=== PATIENT | female | born 1970 | race Caucasian/White ===

== ENCOUNTER 2021-12-07 06:28 | Day surgery (SDC) | payer BC ==
[~2021-12-07] VITALS: Ht 165.1 cm; Wt 62.2 kg
[~2021-12-07 06:28] MED LIST: MULTI VITAMIN1 EACH PO
--- NOTE | 2021-12-07 08:10 | NUR ---
12/07/21 0810 Sheets,Zenia 0805 PT ARRIVED TO PACU ON RA AND VSS. PT WAKES EASILY AND DENIES NAUSEA AND PAIN. PT ENCOURAGED TO PAS GAS.
--- NOTE | 2021-12-07 08:31 | NUR ---
PT ALERT, ORIENTED AND HERE FOR HER FIRST SCOPE. PT ANXIOUS-ANESTHESIA AND GOING UNDER SEEMS TO BE AN ISSUE. 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 GAVE ENCOURAGEMENT AND BLESSING WILL FOLLOW NEEDED
--- NOTE | 2021-12-07 09:33 | OR ---
[facility] [address] [place], [place] [address] Signed DATE OF OPERATION: 12/07/2021 SURGEON: aMgy Mahoney MD PREOPERATIVE DIAGNOSIS: Maternal aunt with colon cancer in her 60s. POSTOPERATIVE DIAGNOSES: 1. Long redundant tortuous colon. 2. 4 mm polyp at 22 cm. 3. 3 mm polyp at 5 cm. 4. Minimal to moderate external hemorrhoids. 5. Possible single diverticulum distal right colon. PROCEDURE: Colonoscopy with hot biopsy. ESTIMATED BLOOD LOSS: None. INDICATIONS: Bhavani is a 51-year-old female, asked to see me for her initial colonoscopy. She has no lower GI complaints. Her maternal aunt developed colon cancer in her 60s. Bhavani also spoke of her systemic lupus with a low white blood cell count. However, she takes no medication for her lupus. She follows along with Dr. Chang. She said it has been stable. In the office, I had given her a pamphlet on colonoscopy. She understands the nature of that test. There is risk including, but not limited to gas bloating, crampy abdominal pain, bleeding, perforation requiring surgery, and missed diagnosis. She also understands the need for IV conscious sedation. She had expressed understanding and wished to proceed. PROCEDURE NOTE: Bhavani was taken into our endoscopy suite and placed in the left lateral decubitus position. She was given a total of 175 mcg of fentanyl and 8 mg of Versed to cover the case. Even then, she was awake and talking to us much of the procedure. She was moaning during much of the procedure. Towards the end, she finally relaxed just enough for a very short time that we were able to finally get the camera through her long redundant colon and into the cecum itself. Fortunately, she is young with an excellent bowel prep. In the future, she clearly needs monitored anesthesia care of propofol for her comfort and safety actually. A digital rectal exam had been done and she does have Electronically Signed By: MAGY MAHONEY MD 12/07/21 0933 PATIENT NAME: BHAVANI FUENTES OPERATIVE REPORT DATE OF : 68 REPORT #: [id number] PHYSICIAN: MAGY MAHONEY MD PCP: MICHAEL STEEN PA-C REPORT IS CONFIDENTIAL AND NOT TO BE RELEASED WITHOUT AUTHORIZATION [facility] [address] [place], [place] [address] Signed moderate external hemorrhoids. Good sphincter tone. No masses. The adult colonoscope had been introduced and advanced under direct visualization of the camera. Again, she has a very long redundant colon and quite tortuous all the way through the left colon and her transverse colon. We finally made it into the right colon and down to the cecum itself. We could easily see the appendiceal orifice and the ileocecal valve. We had to use abdominal compression and additional doses of the Versed and fentanyl. Once again, she was awaken, watching and talking to us much of the procedure. The scope was then slowly withdrawn. We thought she has just a single diverticulum in the distal right colon. It is relatively small in size. In the very distal sigmoid colon, we removed the polyp with a hot biopsy forceps. She had a very tiny polyp at 5 cm in the rectum, removed with hot biopsy forceps. Upon retroflexion of the scope, we saw no additional pathology noted above the anal canal. After this, the gas was suctioned out and the colonoscope removed. Overall, Bhavani tolerated the procedure. RECOMMENDATIONS: I will see Bhavani back in my office in 7 to 14 days to review her results. In the future, she clearly needs monitored anesthesia care with propofol as described above. Magy Mahoney MD ALB/MODL /[id number] cc: MD Dr. Michael Titus Copies: MAGY MAHONEY MD ~ Electronically Signed By: MAGY MAHONEY MD 12/07/21 0933 PATIENT NAME: BHAVANI FUENTES OPERATIVE REPORT DATE OF : 68 REPORT #: [id number] PHYSICIAN: MAGY MAHONEY MD PCP: MICHAEL STEEN PA-C REPORT IS CONFIDENTIAL AND NOT TO BE RELEASED WITHOUT AUTHORIZATION
--- NOTE | 2021-12-08 12:16 | PATH ---
[facility] [address] [place], [place] [address] Signed SPECIMEN(S): A COLON POLYP AT 5 CM SPECIMEN(S): B COLON POLYP AT 22 CM SPECIMEN SOURCE: A. COLON POLYP AT 5 CM B. COLON POLYP AT 22 CM CLINICAL HISTORY: Colonoscopy. Family history of colon CA. Postop: Polyps, diverticula, external hemorrhoids. FINAL PATHOLOGIC DIAGNOSIS: A. Colon, polyp at 5 cm, polypectomy: - Hyperplastic polyp. - Negative for dysplasia or carcinoma. B. Colon, polyp at 22 cm, polypectomy: - Hyperplastic polyp. - Negative for dysplasia or carcinoma. NAL:cml:C2NR MICROSCOPIC EXAMINATION: Histologic sections of all submitted blocks are examined by light microscopy. These findings, together with the gross examination, support the pathologic diagnosis. GROSS DESCRIPTION: Two specimens are received in two containers, labeled "DB,." A. The specimen, labeled "DB, colon polyp at 5 cm," is received in formalin and consists of one hensley soft tissue fragment that measures 0.1 cm in greatest dimension. The specimen is entirely submitted in cassette (A1). B. The specimen, labeled "DB, colon polyp at 22 cm," is received in formalin and consists of one hensley soft tissue fragment that measures 0.2 cm in greatest dimension. The specimen is entirely submitted in cassette (B1). JS (under the direct supervision of a pathologist) The Gross Description was prepared using a voice recognition system. The report was reviewed for accuracy; however, sound-alike word errors, addition and/or deletions may occur. If there is any question about this report, please contact Client Services. PATIENT NAME: ROJAS FUENTES PATHOLOGY DATE OF : 68 REPORT #: [id number] PHYSICIAN: YORDY CASTAÑEDA PCP: MICHAEL STEEN PA-C REPORT IS CONFIDENTIAL AND NOT TO BE RELEASED WITHOUT AUTHORIZATION [facility] [address] [place] [address] Signed PERFORMING LABORATORY: The technical component was performed [place] [place] [address] (Tuyere Fitter: Ana Maria Marcial MD; CLIA# [id number]). Professional interpretation was performed by [employer], [address] [address] (CLIA# [id number]). Diagnostician: Yamel Peres MD Pathologist Electronically Signed 12/08/2021 Copies: ~ PATIENT NAME: ROJAS FUENTES PATHOLOGY DATE OF : 68 REPORT #: [id number] PHYSICIAN: YORDY CASTAÑEDA PCP: MICHAEL STEEN PA-C REPORT IS CONFIDENTIAL AND NOT TO BE RELEASED WITHOUT AUTHORIZATION
== END 2021-12-07 08:36 | disposition home or self-care (01) ==
LOC: OPS 06:28 → DS 06:28 → OPS 08:15
PROVIDERS: ATTEND Colon & Rectal Surgery
PROC: 0DBN8ZZ Excision of Sigmoid Colon, Via Natural or Artificial Opening Endoscopic (ICD-10-PCS; principal; 2021-12-07 06:45)
DX: Z12.11 Encounter for screening for malignant neoplasm of colon (principal); K63.5 Polyp of colon; K64.4 Residual hemorrhoidal skin tags; K57.30 Diverticulosis of large intestine without perforation or abscess without bleeding; M32.9 Systemic lupus erythematosus, unspecified; Z80.0 Family history of malignant neoplasm of digestive organs
CPT/HCPCS: 99153; G0500; J2250; J3010; J7121